=== PATIENT | female | born 1990 | race Hispanic/Latino ===

== ENCOUNTER 2022-10-23 18:13 | Emergency (ER) | payer OTHER ==
[~2022-10-23] VITALS: Ht 157.5 cm; Wt 90.7 kg
[2022-10-23] MEDS ORDERED: ONDANSETRON HCL INJ 2MG/ML 2ML 2 MG/ML VIAL IV STA (18:44)
[2022-10-23] MEDS ORDERED: SODIUM CHLORIDE 0.9% 1000ML 1,000 ML IV STA (18:44)
[2022-10-23] MEDS ORDERED: KETOROLAC TROMETHAMINE 30 MG/ML VIAL IV STA (18:44)
[2022-10-23] MEDS ORDERED: FAMOTIDINE 20 MG/2 ML VIAL IV STA (18:44)
[2022-10-23] MEDS ORDERED: DONNATAL/LIDOCAINE/MAALOX 30 ML SUSP PO ONE (18:45)
[2022-10-23] MEDS ORDERED: ONDANSETRON HCL INJ 2MG/ML 2ML 2 MG/ML VIAL ONE (19:02)
[2022-10-23] MEDS ORDERED: LIDOCAINE VISC 2% SOLN 15 ML UDC ONE (19:02)
[2022-10-23] MEDS ORDERED: BELLADONNA ALK/PHENOBARBITAL 5 ML UDC ONE (19:02)
[2022-10-23] MEDS ORDERED: FAMOTIDINE 20 MG/2 ML VIAL IV ONE (19:03)
[2022-10-23] MEDS ORDERED: KETOROLAC TROMETHAMINE 30 MG/ML VIAL ONE (19:03)
[2022-10-23] MEDS ORDERED: SODIUM CHLORIDE 0.9% 1000ML 1,000 ML ONE (19:03)
[2022-10-23] MEDS ORDERED: MAGNESIUM/ALUMINUM/SIMETHICONE 30 ML UDC ONE (19:03)
[2022-10-23] MEDS ORDERED: MAGNESIUM/ALUMINUM/SIMETHICONE 30 ML UDC PO ONE (19:15)
[2022-10-23] MEDS ORDERED: BELLADONNA ALK/PHENOBARBITAL 5 ML UDC PO ONE (19:15)
[2022-10-23] MEDS ORDERED: LIDOCAINE VISC 2% SOLN 15 ML UDC PO ONE (19:15)
[2022-10-23] MEDS ORDERED: IOPAMIDOL 370 MG/ML 100 ML INFUS..BTL INJ ONE (20:03)
[2022-10-23] MEDS ORDERED: ACETAMINOPHEN500 MG PO (21:26)
[2022-10-23] MEDS ORDERED: ONDANSETRON ODT4 MG PO (21:26)
[2022-10-23 21:30] VITALS: BP 106/68
== END 2022-10-23 21:32 | disposition home or self-care (01) ==
LOC: FSED 18:23
DX: R10.9 Unspecified abdominal pain (principal); R11.0 Nausea; K21.9 Gastro-esophageal reflux disease without esophagitis; Z88.0 Allergy status to penicillin
CPT/HCPCS: 74177; 80053; 80307; 81003; 85025; 99284; J1885; J2405; J7030; Q9967

== ENCOUNTER 2023-02-05 22:15 | Emergency (ER) | payer MEDICAID, OTHER ==
[~2023-02-05] VITALS: Ht 157.5 cm; Wt 90.7 kg
[~2023-02-05 22:15] MED LIST: ACETAMINOPHEN500 MG PO; ONDANSETRON ODT4 MG PO
[2023-02-05 23:11] VITALS: O2SAT 100
[2023-02-05] MEDS ORDERED: KETOROLAC TROMETHAMINE 60 MG/2 ML VIAL IM ONE (23:15)
[2023-02-05 23:54] LABS: BASOPHILS # (AUTO) 0.1 (0.0-0.1); BASOPHILS % 0.7 % (0.0-1.0); EOSINOPHILS # (AUTO) 0.2 (0.0-0.4); EOSINOPHILS % 2.2 % (0.0-6.0); HEMATOCRIT 38.1 % (34.2-44.1); HEMOGLOBIN 11.5 g/dL (12.0-16.0); LYMPHOCYTES # (AUTO) 2.4 (1.0-3.2); LYMPHOCYTES % 27.4 % (18.0-39.1); MEAN CORPUSCULAR HEMOGLOBIN 26.5 pg (28-32); MEAN CORPUSCULAR HGB CONC 30.2 g/dL (31-35); MEAN CORPUSCULAR VOLUME 87.8 fL (81-99); MONOCYTES # (AUTO) 0.7 (0.2-0.8); MONOCYTES % 8.4 % (4.4-11.3); NEUTROPHILS # (AUTO) 5.3 (2.1-6.9); PLATELET COUNT 260 x10e3/uL (140-360); RED BLOOD COUNT 4.34 x10e6/uL (3.6-5.1); RED CELL DISTRIBUTION WIDTH 14.3 % (11.7-14.4)
[2023-02-06 00:06] LABS: CLARITY,URINE CLOUDY (CLEAR); COLOR,URINE YELLOW (YELLOW); KETONES,URINE NEGATIVE (NEGATIVE); LEUKOCYTE ESTERASE ,URINE 1+ (NEGATIVE); NITRITE,URINE NEGATIVE (NEGATIVE); PROTEIN,URINE DIPSTICK NEGATIVE (NEGATIVE); URINE UROBILINOGEN 0.2 mg/dL (0.2 - 1)
[2023-02-06 00:13] LABS: ALBUMIN 3.4 g/dL (3.5-5.0); ANION GAP 12.8 mmol/L (8-16); CALCIUM 8.7 mg/dL (8.4-10.2); CREATININE, SERUM 0.77 mg/dL (0.57-1.11); POTASSIUM 3.8 mmol/L (3.5-5.1)
[2023-02-06 00:14] LABS: BACTERIA,URINE MANY /HPF; WBC,URINE (MAN) 21-50 /HPF (0-5)
[2023-02-06 00:15] LABS: EPITHELIAL CELLS,URINE MANY /LPF; MUCUS,URINE FEW (RARE); RENAL EPITHELIAL CELLS,URINE FEW; TRANSITIONAL EPI CELLS,URINE FEW
[2023-02-06] MEDS ORDERED: KETOROLAC TROMETHAMINE 30 MG/ML VIAL ONE (01:35)
[2023-02-06] MEDS ORDERED: KETOROLAC TROMETHAMINE 60 MG/2 ML VIAL ONE (01:39)
[2023-02-06] MEDS ORDERED: BACTRIM DS TAB1 EACH PO (03:27)
== END 2023-02-06 03:31 | disposition home or self-care (01) ==
LOC: ER 22:34
DX: M79.10 Myalgia, unspecified site (principal); N39.0 Urinary tract infection, site not specified; K21.9 Gastro-esophageal reflux disease without esophagitis; G40.909 Epilepsy, unspecified, not intractable, without status epilepticus
CPT/HCPCS: 36415; 72100; 72220; 80053; 81001; 82550; 84702; 85025; 87400; 99284; J1885 ×2; U0002